=== PATIENT | female | born 1980 | race Caucasian/White ===

== ENCOUNTER 2018-11-25 22:26 | Emergency (ER) | payer MEDICAID ==
[~2018-11-25] VITALS: Ht 172.7 cm; Wt 59.8 kg
[2018-11-25] MEDS ORDERED: ondansetron/PF 4mg/2ml inj IV ONE (23:05)
[2018-11-25] MEDS ORDERED: normal saline 1000ML IV soln IVB ONE (23:05)
[2018-11-25] MEDS ORDERED: ketorolac trometh. 30mg/ml inj. IV ONE (23:05)
[2018-11-25 23:23] LABS: BASOPHILS # (AUTO) 0.1 X10'3 (0-0.2); BASOPHILS % (AUTO) 1.4 % (0-1); EOSINOPHILS # (AUTO) 0.1 X10'3 (0-0.9); EOSINOPHILS % (AUTO) 1.2 % (0-6); HEMATOCRIT 36.7 % (35.0-45.0); HEMOGLOBIN 12.7 g/dl (12.0-16.0); LYMPHOCYTES # (AUTO) 2.1 X10'3 (1.1-4.8); LYMPHOCYTES % (AUTO) 41.5 % (21-51); MEAN CORPUSCULAR HEMOGLOBIN 29.8 PG (27.0-31.0); MEAN CORPUSCULAR HGB CONC 34.7 g/dL (33.0-36.5); MEAN CORPUSCULAR VOLUME 85.8 FL (78-98); MONOCYTES # (AUTO) 0.4 X10'3 (0-0.9); MONOCYTES % (AUTO) 7.7 % (2-12); NEUTROPHILS # (AUTO) 2.4 X10'3 (1.8-7.7); NEUTROPHILS % (AUTO) 48.2 % (42-75); PLATELET COUNT 342 X10'3 (140-440); RED BLOOD COUNT 4.28 X10'6 (4.20-5.60); RED CELL DISTRIBUTION WIDTH 15.5 % (11.5-14.5)
[2018-11-25 23:33] LABS: ALANINE AMINOTRANSFERASE 17 U/L (12-78); ALBUMIN 4.1 G/DL (3.4-5.0); ALBUMIN/GLOBULIN RATIO 1.5 (1.1-1.5); ALKALINE PHOSPHATASE 42 IU/L (46-116); ANION GAP 11 (8-16); ASPARTATE AMINO TRANSFERASE 13 U/L (10-37); BILIRUBIN,TOTAL 0.9 MG/DL (0.1-1.0); BLOOD UREA NITROGEN 4 MG/DL (7-18); BUN/CREATININE RATIO 4.5 (6.6-38.0); CALCIUM 8.9 MG/DL (8.5-10.1); CHLORIDE 91 MMOL/L (99-107); CREATININE 0.89 MG/DL (0.40-0.90); GLUCOSE 102 MG/DL (70-104); LIPASE 96 U/L (73-393); POTASSIUM 3.1 MMOL/L (3.5-5.1); SODIUM 127 MMOL/L (135-145); TOTAL CARBON DIOXIDE 25.4 MMOL/L (24-32); TOTAL PROTEIN 6.9 G/DL (6.4-8.2); eGFR 71 ML/MIN
[2018-11-25] MEDS ORDERED: potassium Cl 20 mEq SR tablet PO ONE (23:45)
[2018-11-25] MEDS ORDERED: potassium 10mEq/100ml NS w/LIDOcaine (10mg/bag) IV SCH (23:45)
[2018-11-26 00:20] LABS: URINE HCG NEGATIVE (NEG)
[2018-11-26 00:22] LABS: CLARITY,URINE CLEAR (Clear); COLOR,URINE YELLOW (Yellow); GLUCOSE, URINE NEGATIVE (Neg); KETONES,URINE TRACE mg/dl (Neg); LEUKOCYTE ESTERASE ,URINE NEGATIVE (Neg); NITRITES, URINE NEGATIVE (Neg); OCCULT BLOOD,URINE NEGATIVE (Neg); PH,URINE 5.5 (4.8-8.0); PROTEIN,URINE NEGATIVE (Neg); UA COLLECTION TYPE CLN CATCH MIDSTREAM; UROBILINOGEN,URINE 0.2 E.U/dL (0.2-1.0)
[2018-11-26] MEDS ORDERED: ONDA4TAB6 PO (00:25)
[2018-11-26 01:40] VITALS: BP 148/89
[2018-11-26] MEDS ORDERED: acetaminophen 325mg tablet PO ONE (01:40)
[2018-11-26] MEDS ORDERED: ZOLP10TA5 PO (02:13)
[2018-11-26] MEDS ORDERED: zolpidem 5mg tablet PO ONE (02:15)
== END 2018-11-26 02:37 | disposition home or self-care (01) ==
LOC: ER 22:26
DX: R11.2 Nausea with vomiting, unspecified (principal); R19.7 Diarrhea, unspecified; E87.6 Hypokalemia; E87.1 Hypo-osmolality and hyponatremia; G89.29 Other chronic pain; M54.5 Low back pain; F32.9 Major depressive disorder, single episode, unspecified; F41.9 Anxiety disorder, unspecified
CPT/HCPCS: 36415; 80053; 81003; 81025; 83690; 85025; 96361; 96365; 96375; 99284; J1885; J2405; J3480; J7030; 99283

== ENCOUNTER 2018-12-02 21:50 | Emergency (ER) | payer MEDICAID ==
[~2018-12-02] VITALS: Ht 172.7 cm; Wt 65.7 kg
[~2018-12-02 21:50] MED LIST: ONDA4TAB6 PO; ZOLP10TA5 PO
[2018-12-02] MEDS ORDERED: metoclopramide 5 mg/ml inj IV ONE (22:40)
[2018-12-02] MEDS ORDERED: normal saline 1000ML IV soln IV ONE (22:40)
--- NOTE | 2018-12-02 22:40 | NUR ---
PT TO CT VIA WHEELCHAIR
[2018-12-02 22:41] LABS: CLARITY,URINE CLEAR (Clear); COLOR,URINE STRAW (Yellow); GLUCOSE, URINE NEGATIVE (Neg); KETONES,URINE NEGATIVE (Neg); LEUKOCYTE ESTERASE ,URINE NEGATIVE (Neg); NITRITES, URINE NEGATIVE (Neg); OCCULT BLOOD,URINE NEGATIVE (Neg); PROTEIN,URINE NEGATIVE (Neg); UROBILINOGEN,URINE 0.2 E.U/dL (0.2-1.0)
[2018-12-02 22:46] LABS: UA COLLECTION TYPE CLN CATCH MIDSTREAM
[2018-12-02] MEDS ORDERED: famotidine/PF 10 mg/ml inj IV ONE (23:10)
[2018-12-02 23:13] LABS: ALANINE AMINOTRANSFERASE 20 U/L (12-78); ALBUMIN 4.3 G/DL (3.4-5.0); ALBUMIN/GLOBULIN RATIO 1.4 (1.1-1.5); ALKALINE PHOSPHATASE 45 IU/L (46-116); ANION GAP 9 (8-16); ASPARTATE AMINO TRANSFERASE 13 U/L (10-37); BASOPHILS # (AUTO) 0.1 X10'3 (0-0.2); BASOPHILS % (AUTO) 0.9 % (0-1); BLOOD UREA NITROGEN 6 MG/DL (7-18); BUN/CREATININE RATIO 6.5 (6.6-38.0); CALCIUM 9.4 MG/DL (8.5-10.1); CHLORIDE 95 MMOL/L (99-107); CREATININE 0.92 MG/DL (0.40-0.90); EOSINOPHILS # (AUTO) 0.1 X10'3 (0-0.9); EOSINOPHILS % (AUTO) 1.3 % (0-6); GLUCOSE 102 MG/DL (70-104); HEMATOCRIT 40.6 % (35.0-45.0); HEMOGLOBIN 13.4 g/dl (12.0-16.0); LIPASE 308 U/L (73-393); LYMPHOCYTES # (AUTO) 2.2 X10'3 (1.1-4.8); LYMPHOCYTES % (AUTO) 35.8 % (21-51); MEAN CORPUSCULAR HEMOGLOBIN 29.5 PG (27.0-31.0); MEAN CORPUSCULAR HGB CONC 33.1 g/dL (33.0-36.5); MEAN CORPUSCULAR VOLUME 89.2 FL (78-98); MEAN PLATELET VOLUME 8.2 FL (7.4-10.4); MONOCYTES # (AUTO) 0.4 X10'3 (0-0.9); MONOCYTES % (AUTO) 6.5 % (2-12); NEUTROPHILS # (AUTO) 3.5 X10'3 (1.8-7.7); NEUTROPHILS % (AUTO) 55.5 % (42-75); PLATELET COUNT 355 X10'3 (140-440); POTASSIUM 3.5 MMOL/L (3.5-5.1); RED BLOOD COUNT 4.56 X10'6 (4.20-5.60); SODIUM 130 MMOL/L (135-145); TOTAL CARBON DIOXIDE 25.6 MMOL/L (24-32); TOTAL PROTEIN 7.4 G/DL (6.4-8.2); WHITE BLOOD COUNT 6.2 X10'3 (4.5-11.0); eGFR 69 ML/MIN
[2018-12-02] MEDS ORDERED: FAMO40TA73 PO (23:31)
[2018-12-02] MEDS ORDERED: PROC25SU31 RC (23:31)
[2018-12-03 00:29] VITALS: BP 126/73
== END 2018-12-03 00:30 | disposition home or self-care (01) ==
LOC: ER 21:51
DX: E86.0 Dehydration (principal); G43.A0 Cyclical vomiting, in migraine, not intractable; E87.1 Hypo-osmolality and hyponatremia; G89.29 Other chronic pain; Z79.899 Other long term (current) drug therapy; F41.9 Anxiety disorder, unspecified; F32.9 Major depressive disorder, single episode, unspecified
CPT/HCPCS: 36415; 70450; 80053; 81003; 83690; 85025; 96361; 96374; 96375; 99284; J2765; J3490; J7030

== ENCOUNTER 2021-05-08 22:16 | Emergency (ER) | payer MEDICAID ==
[~2021-05-08] VITALS: Ht 172.7 cm; Wt 72.7 kg
[~2021-05-08 22:16] MED LIST changes: +FAMO40TA73 PO; -ZOLP10TA5 PO
[2021-05-08] MEDS ORDERED: normal saline 1000ML IV soln IVB ONE (22:35)
[2021-05-08 23:01] LABS: BASOPHILS % (AUTO) 0.7 % (0-1); EOSINOPHILS % (AUTO) 0.4 % (0-6); HEMATOCRIT 45.1 % (35.0-45.0); LYMPHOCYTES # (AUTO) 0.9 X10'3 (1.1-4.8); LYMPHOCYTES % (AUTO) 13.3 % (21-51); MEAN CORPUSCULAR HEMOGLOBIN 28.2 PG (27.0-31.0); MEAN CORPUSCULAR HGB CONC 33.3 g/dL (33.0-36.5); MEAN CORPUSCULAR VOLUME 84.6 FL (78-98); MONOCYTES # (AUTO) 0.2 X10'3 (0-0.9); MONOCYTES % (AUTO) 2.8 % (2-12); NEUTROPHILS # (AUTO) 5.5 X10'3 (1.8-7.7); NEUTROPHILS % (AUTO) 82.8 % (42-75); PLATELET COUNT 304 X10'3 (140-440); RED BLOOD COUNT 5.33 X10'6 (4.20-5.60); RED CELL DISTRIBUTION WIDTH 19.4 % (11.5-14.5); WHITE BLOOD COUNT 6.6 X10'3 (4.5-11.0)
[2021-05-08 23:31] LABS: PLATELET ESTIMATE NORMAL
[2021-05-08 23:32] LABS: ANISOCYTOSIS 2+
[2021-05-08 23:33] LABS: ALANINE AMINOTRANSFERASE 19 U/L (12-78); ALBUMIN 4.3 G/DL (3.4-5.0); ALBUMIN/GLOBULIN RATIO 1.3 (1.1-1.5); ALKALINE PHOSPHATASE 80 IU/L (46-116); ANION GAP 9 (8-16); ASPARTATE AMINO TRANSFERASE 15 U/L (10-37); BILIRUBIN,TOTAL 0.6 MG/DL (0.1-1.0); BLOOD UREA NITROGEN 7 MG/DL (7-18); BUN/CREATININE RATIO 6.6 (6.6-38.0); CALCIUM 9.6 MG/DL (8.5-10.1); CHLORIDE 106 MMOL/L (99-107); CREATININE 1.06 MG/DL (0.40-0.90); GLUCOSE 109 MG/DL (70-104); SODIUM 140 MMOL/L (135-145); TOTAL CARBON DIOXIDE 24.6 MMOL/L (24-32); TOTAL PROTEIN 7.7 G/DL (6.4-8.2); eGFR 58 ML/MIN
[2021-05-08 23:43] LABS: ETHANOL < 0.010 GM/DL (0.0-0.010); LIPASE < 50 U/L (73-393)
[2021-05-09 01:23] VITALS: BP 135/87
== END 2021-05-09 01:24 | disposition home or self-care (01) ==
LOC: ER 22:17
DX: T40.601A Poisoning by unspecified narcotics, accidental (unintentional), initial encounter (principal); R53.1 Weakness; G89.29 Other chronic pain; F41.9 Anxiety disorder, unspecified; F32.9 Major depressive disorder, single episode, unspecified; Z79.899 Other long term (current) drug therapy; Y92.89 Other specified places as the place of occurrence of the external cause
CPT/HCPCS: 36415; 80053; 80320; 83690; 84443; 85008; 85025; 96360; 99283; J7030

== ENCOUNTER 2024-08-28 15:28 | Emergency (ER) | payer MEDICAID ==
[~2024-08-28] VITALS: Ht 172.7 cm; Wt 59.0 kg
[2024-08-28 15:31] VITALS: TEMP 98.4
[2024-08-28 16:04] LABS: BASOPHILS # (AUTO) 0.1 X10'3 (0-0.2); BASOPHILS % (AUTO) 1.6 % (0-1); EOSINOPHILS # (AUTO) 0.2 X10'3 (0-0.9); EOSINOPHILS % (AUTO) 2.4 % (0-6); HEMATOCRIT 34.1 % (35.0-45.0); LYMPHOCYTES # (AUTO) 2.6 X10'3 (1.1-4.8); LYMPHOCYTES % (AUTO) 28.3 % (21-51); MEAN CORPUSCULAR HEMOGLOBIN 23.4 PG (27.0-31.0); MEAN CORPUSCULAR HGB CONC 32.2 g/dL (33.0-36.5); MEAN CORPUSCULAR VOLUME 72.5 FL (78-98); MEAN PLATELET VOLUME 7.4 FL (7.4-10.4); MONOCYTES # (AUTO) 0.8 X10'3 (0-0.9); MONOCYTES % (AUTO) 8.7 % (2-12); NEUTROPHILS # (AUTO) 5.4 X10'3 (1.8-7.7); PLATELET COUNT 484 X10'3 (140-440); RED CELL DISTRIBUTION WIDTH 19.8 % (11.5-14.5); WHITE BLOOD COUNT 9.2 X10'3 (4.5-11.0)
[2024-08-28 16:12] LABS: ALBUMIN 3.8 G/DL (3.4-5.0); ANION GAP 8 (8-16); BLOOD UREA NITROGEN 9 MG/DL (7-18); BUN/CREATININE RATIO 7.7 (10.0-20.0); CHLORIDE 102 MMOL/L (99-107); CREATININE 1.17 MG/DL (0.40-0.90); GLUCOSE 104 MG/DL (70-104); LIPASE 21 U/L (16-77); POTASSIUM 3.9 MMOL/L (3.5-5.1); SODIUM 136 MMOL/L (135-145); TOTAL CARBON DIOXIDE 25.9 MMOL/L (24-32); eCRCL 58 ML/MIN; eGFR 50 ML/MIN
[2024-08-28 18:10] LABS: BILIRUBIN,URINE NEGATIVE (Neg); CLARITY,URINE CLEAR (Clear); COLOR,URINE YELLOW (Yellow); GLUCOSE, URINE NEGATIVE (Neg); KETONES,URINE NEGATIVE (Neg); LEUKOCYTE ESTERASE ,URINE NEGATIVE (Neg); NITRITES, URINE NEGATIVE (Neg); OCCULT BLOOD,URINE NEGATIVE (Neg); PH,URINE 5.5 (4.8-8.0); PROTEIN,URINE NEGATIVE (Neg); UROBILINOGEN,URINE 0.2 E.U/dL (0.2-1.0)
[2024-08-28 18:13] LABS: URINE HCG NEGATIVE (NEG)
[2024-08-28 18:27] LABS: UA COLLECTION TYPE NON-SPECIFIED
[2024-08-28] MEDS ORDERED: HYDR-3965 PO (20:56)
[2024-08-28] MEDS ORDERED: ONDA-243 PO (20:56)
[2024-08-28 21:07] VITALS: BP 113/72; PULSE 66; RESP 16; O2SAT 100
== END 2024-08-28 21:06 | disposition home or self-care (01) ==
LOC: ER 15:28
DX: K80.70 Calculus of gallbladder and bile duct without cholecystitis without obstruction (principal); F32.A Depression, unspecified; F41.9 Anxiety disorder, unspecified
CPT/HCPCS: 76700; 80048; 81003; 81025; 83690; 85025; 99284

== ENCOUNTER 2024-10-08 06:23 | Observation (INO) | payer MEDICAID ==
[2024-10-05 12:21] LABS: BASOPHILS # (AUTO) 0.1 X10'3 (0-0.2); EOSINOPHILS # (AUTO) 0.2 X10'3 (0-0.9); LYMPHOCYTES # (AUTO) 1.3 X10'3 (1.1-4.8); MONOCYTES # (AUTO) 0.4 X10'3 (0-0.9); PRE OP HEMATOCRIT 31.3 % (35.0-45.0)
[2024-10-05 12:22] LABS: BILIRUBIN,URINE NEGATIVE (Neg); CLARITY,URINE CLEAR (Clear); COLOR,URINE YELLOW (Yellow); GLUCOSE, URINE NEGATIVE (Neg); KETONES,URINE NEGATIVE (Neg); LEUKOCYTE ESTERASE ,URINE NEGATIVE (Neg); NITRITES, URINE NEGATIVE (Neg); OCCULT BLOOD,URINE NEGATIVE (Neg); PROTEIN,URINE NEGATIVE (Neg); UROBILINOGEN,URINE 0.2 E.U/dL (0.2-1.0)
[2024-10-05 12:23] LABS: BASOPHILS % (AUTO) 1.9 % (0-1); EOSINOPHILS % (AUTO) 2.8 % (0-6); LYMPHOCYTES % (AUTO) 20.2 % (21-51); MEAN CORPUSCULAR HEMOGLOBIN 22.6 PG (27.0-31.0); MEAN CORPUSCULAR HGB CONC 31.6 g/dL (33.0-36.5); MEAN CORPUSCULAR VOLUME 71.4 FL (78-98); MEAN PLATELET VOLUME 7.4 FL (7.4-10.4); MONOCYTES % (AUTO) 6.6 % (2-12); NEUTROPHILS # (AUTO) 4.3 X10'3 (1.8-7.7); NEUTROPHILS % (AUTO) 68.5 % (42-75); PRE OP PLATELET COUNT 431 X10'3 (140-440); PRE OP WHITE BLOOD COUNT 6.3 10'3 (4.8-10.8); RED BLOOD COUNT 4.39 X10'6 (4.20-5.60); RED CELL DISTRIBUTION WIDTH 20.8 % (11.5-14.5)
[2024-10-05 12:23] LABS: UA COLLECTION TYPE CLN CATCH MIDSTREAM
[2024-10-05 12:36] LABS: PRE OP PROTIME 10.4 SECONDS (9.0-12.0)
[2024-10-05 12:38] LABS: ALBUMIN 3.9 G/DL (3.4-5.0); ALBUMIN/GLOBULIN RATIO 1.1 (1.1-1.5); ALKALINE PHOSPHATASE 50 IU/L (46-116); BLOOD UREA NITROGEN 7 MG/DL (7-18); BUN/CREATININE RATIO 7.5 (10.0-20.0); CALCIUM 8.8 MG/DL (8.5-10.1); CHLORIDE 105 MMOL/L (99-107); CREATININE 0.93 MG/DL (0.40-0.90); PRE OP ALT 23 U/L (30-65); PRE OP ANION GAP 4 (8-16); PRE OP AST 15 U/L (10-37); PRE OP BILIRUB, TOTAL 0.4 MG/DL (0.0-1.0); PRE OP GLUCOSE 103 MG/DL (70-104); PRE OP POTASSIUM 4.6 MMOL/L (3.4-5.1); PRE OP SODIUM 139 MMOL/L (135-145); TOTAL CARBON DIOXIDE 29.6 MMOL/L (24-32); TOTAL PROTEIN 7.5 G/DL (6.4-8.2); eGFR 66 ML/MIN
[2024-10-05 13:02] LABS: ANISOCYTOSIS 3+; MICROCYTOSIS 2+; PLATELET ESTIMATE NORMAL
[2024-10-05 13:03] LABS: HYPOCHROMASIA 3+; SCHISTOCYTES 1+; TARGET CELLS 1+
[2024-10-05 13:04] LABS: ELLIPTOCYTES 1+
[2024-10-05 13:05] LABS: PRE OP HEMOGLOBIN 9.9 g/dL (12.0-16.0)
[2024-10-08] VITALS (27 sets, daily range): BP systolic 91–154; BP diastolic 51–99; PULSE 56–90; RESP 10–16; TEMP 97.7–98.2; O2SAT 93–100
[~2024-10-08] VITALS: Ht 172.7 cm; Wt 60.5 kg
[2024-10-08] MEDS: ceFOXitin sod/dextrose 2g/50ml 50 ML IV ONE (05:30)
[~2024-10-08 06:23] MED LIST changes: -FAMO40TA73 PO; +GABA100C PO; +METH40TA2 PO; +ONDA-243 PO; -ONDA4TAB6 PO
[2024-10-08 07:58] LABS: ISTAT CREATININE 1.1 mg/dL (0.6-1.1); ISTAT HGB 11.2 g/dl (12.0-16.0); ISTAT IONIZED CALCIUM 1.24 mmol/L (1.03-1.32); POC BUN/CREATININE RATIO 5.5 (6.6-38.0)
[2024-10-08] MEDS: famotidine 20mg tablet PO ONE (10:11)
[2024-10-08] MEDS: INDOCYANINE GREEN 25 MG/10 ML VIAL IV ONE (10:11)
[2024-10-08] MEDS: ringers solution, lacted 1,000 ML IV SCH ×2 (10:11→14:50)
[2024-10-08] MEDS ORDERED: sevoflurane 250ml liquid IH ONE (12:42)
[2024-10-08] MEDS ORDERED: fentaNYL /PF 50mcg/ml 5ml ampule ONE (12:52)
[2024-10-08] MEDS ORDERED: midazolam 1 mg/ML 2ml injection ONE (12:52)
[2024-10-08] MEDS ORDERED: propofol inj 20 ML IV ONE (13:21)
[2024-10-08] MEDS ORDERED: LIDOcaine 2% (20mg/ml) 5ml vial ONE (13:21)
[2024-10-08] MEDS ORDERED: rocuronium 10mg/ml inj IV ONE (13:22)
[2024-10-08] MEDS ORDERED: dexamethasone sod phosphate 4mg/ml inj. ONE (13:23)
[2024-10-08] MEDS ORDERED: ondansetron/PF 4mg/2ml inj ONE (13:23)
[2024-10-08] MEDS ORDERED: neostigmine methylsulfate 1 MG/ML 10ml vial ONE (13:59)
[2024-10-08] MEDS ORDERED: glycopyrrolate 0.2mg/ml inj ONE (13:59)
[2024-10-08] MEDS ORDERED: labetalol 20mg/4ml (5mg/ml) syringe IV PRN (14:10)
[2024-10-08] MEDS ORDERED: morphine 2 MG/ML inj. syringe IV PRN (14:10)
[2024-10-08] MEDS ORDERED: proCHLORperazine 10 MG/2 ml inj IV PRN (14:10)
[2024-10-08] MEDS ORDERED: hydrALAZINE 20mg/ml inj. IV PRN (14:10)
[2024-10-08] MEDS ORDERED: morphine 4 MG/ML inj SYRINge IV PRN (14:10)
[2024-10-08] MEDS ORDERED: meperidine/PF 25mg/ml syringe IV PRN ×2 (14:10)
[2024-10-08] MEDS ORDERED: ondansetron/PF 4mg/2ml inj IV PRN ×2 (14:10→14:15)
[2024-10-08] MEDS ORDERED: HYDROcodone/acetaminophen 5mg/325mg tablet PO PRN (14:15)
[2024-10-08] MEDS ORDERED: naloxone 0.4 mg/ml inj IV PRN (14:15)
[2024-10-08] MEDS: meperidine/PF 25mg/ml syringe IV PRN (14:24)
[2024-10-08] MEDS: acetaminophen 1,000mg/100ml IV 100 ML IV PRN (14:25)
[2024-10-08] MEDS: ketorolac trometh 15mg/ml vial 15 MG/ML ML IV PRN (14:51)
[2024-10-08] MEDS ORDERED: ondansetron 4mg rapidly disintigrating tab PO PRN (14:55)
[2024-10-08] MEDS: morphine 2 MG/ML inj. syringe IV PRN (17:11)
[2024-10-08] MEDS: ceFOXitin 1 GM/D5W 50mL IVPB 50 ML IV SCH (17:43)
[2024-10-08] MEDS: potassium CL 20mEq in D5-1/2NS 1,000 ML IV SCH (17:43)
[2024-10-08] MEDS: gabapentin 100mg capsule PO SCH (20:51)
[2024-10-09 02:00] VITALS: PULSE 52; RESP 14; TEMP 98.7
[2024-10-09 05:36] LABS: BASOPHILS # (AUTO) 0.1 X10'3 (0-0.2); BASOPHILS % (AUTO) 0.9 % (0-1); EOSINOPHILS % (AUTO) 0 % (0-6); HEMATOCRIT 26.2 % (35.0-45.0); HEMOGLOBIN 8.3 g/dl (12.0-16.0); LYMPHOCYTES # (AUTO) 0.9 X10'3 (1.1-4.8); LYMPHOCYTES % (AUTO) 12.5 % (21-51); MEAN CORPUSCULAR HEMOGLOBIN 22.9 PG (27.0-31.0); MEAN CORPUSCULAR HGB CONC 31.8 g/dL (33.0-36.5); MEAN CORPUSCULAR VOLUME 71.9 FL (78-98); MEAN PLATELET VOLUME 7.8 FL (7.4-10.4); MONOCYTES # (AUTO) 0.5 X10'3 (0-0.9); MONOCYTES % (AUTO) 7.4 % (2-12); NEUTROPHILS # (AUTO) 5.8 X10'3 (1.8-7.7); NEUTROPHILS % (AUTO) 79.2 % (42-75); PLATELET COUNT 353 X10'3 (140-440); RED BLOOD COUNT 3.65 X10'6 (4.20-5.60); WHITE BLOOD COUNT 7.4 X10'3 (4.5-11.0)
[2024-10-09 06:00] VITALS: BP 144/105; PULSE 84; RESP 14; TEMP 97.9
[2024-10-09] MEDS: methadone 10mg tablet PO SCH (08:36)
[2024-10-09 10:00] VITALS: BP 117/70; PULSE 69; RESP 19; TEMP 97.9; O2SAT 97
== END 2024-10-09 15:15 | disposition home or self-care (01) ==
LOC: PAS 06:23 → SUR 3N 14:20 → INTOOBSV 21:19 → OBSVTOIN 21:19
PROVIDERS: ADMIT Surgery; ATTEND Surgery
DX: K80.10 Calculus of gallbladder with chronic cholecystitis without obstruction (principal); F41.9 Anxiety disorder, unspecified; F32.A Depression, unspecified; G89.29 Other chronic pain; K82.8 Other specified diseases of gallbladder; Z79.899 Other long term (current) drug therapy; Z86.2 Personal history of diseases of the blood and blood-forming organs and certain disorders involving the immune mechanism
CPT/HCPCS: 36415; 47562; 80047; 81003; 82948; 85008; 85025; 85610; 85730; 86885; 86900; 86901; 96365; 96366; 96375; 96376; G0378; J0131; J0694; J1100; J1885; J2003; J2175; J2250; J2270; J2405; J2704; J2710; J3010; J3480; J3490; J7120; S2900; 80053; A4215; A4618; A7000

== ENCOUNTER 2024-10-24 09:17 | Emergency (ER) | payer MEDICAID ==
[~2024-10-24] VITALS: Ht 172.7 cm; Wt 59.3 kg
[2024-10-24 09:26] VITALS: BP 151/88; PULSE 96; RESP 16; TEMP 97.6; O2SAT 97
== END 2024-10-24 11:59 | disposition home or self-care (01) ==
LOC: ER 09:18
DX: T81.31XA Disruption of external operation (surgical) wound, not elsewhere classified, initial encounter (principal); G89.29 Other chronic pain; Z79.899 Other long term (current) drug therapy
CPT/HCPCS: 99281